=== PATIENT | male | born 1980 | race African-American/Black ===

== ENCOUNTER 2018-06-26 01:31 | Emergency (ER) | payer MEDICAID ==
[~2018-06-26] VITALS: Ht 180.3 cm; Wt 91.2 kg
[2018-06-26 01:38] VITALS: Ht 180.3 cm; Wt 91.2 kg
[2018-06-26 02:47] LABS: BASOPHIL % 0.3 % (0-2); PLATELET COUNT 230 x10^3mcL (130-400); RED CELL DISTRIBUTION WIDTH 14.5 % (11.5-14.5)
[2018-06-26 03:01] LABS: CALCIUM 8.5 mg/dL (8.5-10.1); CARBON DIOXIDE 29.7 mmol/L (21-32); CHLORIDE SERUM 105 mmol/L (98-107); CREATININE SERUM 0.9 mg/dL (0.7-1.3); GFR1 > 60 mL/min; GLUCOSE SERUM 100 mg/dL (74-106); POTASSIUM SERUM 3.8 mmol/L (3.5-5.1); SODIUM SERUM 145 mmol/L (136-145)
[2018-06-26 03:08] LABS: microscopic required? YES; urine erythrocyte TRACE (NEGATIVE)
[2018-06-26 03:08] LABS: ALBUMIN 3.6 g/dL (3.4-5.0); ALKALINE PHOSPHATASE 66 U/L (46-116); ALT/SGPT 33 U/L (16-63); AST/SGOT 18 U/L (15-37); BILIRUBIN TOTAL 0.51 mg/dL (0.20-1.00); LIPASE 292 IU/L (73-393); TOTAL PROTEIN, SERUM 7.1 g/dL (6.4-8.2)
[2018-06-26 03:12] LABS: AMPHETAMINE QUAL UR NONE DETECTED (See below)
[2018-06-26 08:04] VITALS: BP 127/70
== END 2018-06-26 08:25 | disposition home or self-care (01) ==
LOC: ED 01:31
PROVIDERS: Emergency Medicine
DX: F10.129 Alcohol abuse with intoxication, unspecified (principal); F19.90 Other psychoactive substance use, unspecified, uncomplicated; G89.29 Other chronic pain; Z87.19 Personal history of other diseases of the digestive system; Z98.890 Other specified postprocedural states; Z88.6 Allergy status to analgesic agent
CPT/HCPCS: 36415; 83880; G0480